=== PATIENT | male | born 1950 | race Caucasian/White ===

== ENCOUNTER 2018-04-01 19:05 | Emergency (ER) | payer OTHER ==
[2018-04-01 19:16] VITALS: BP 133/75
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
[2018-04-01] MEDS ORDERED: CYCLOBENZAPRINE 10MG PREPACK#3 BTL TAKEHOME ONE (19:56)
== END 2018-04-01 20:04 | disposition home or self-care (01) ==
DX: M53.3 Sacrococcygeal disorders, not elsewhere classified (principal); M50.31 Other cervical disc degeneration, high cervical region; M50.321 Other cervical disc degeneration at C4-C5 level; M50.322 Other cervical disc degeneration at C5-C6 level; M50.323 Other cervical disc degeneration at C6-C7 level; M19.011 Primary osteoarthritis, right shoulder; M25.521 Pain in right elbow